=== PATIENT | female | born 1970 | race Caucasian/White ===

== ENCOUNTER → 2016-07-14 | Outpatient (CLI) | payer OTHER ==
--- NOTE | 2016-07-14 16:17 | REP ---
Left lower extremity Duplex Doppler venous ultrasound: Real time compression and duplex Doppler interrogation of the left lower extremity deep venous system is performed. The left common femoral, superficial femoral and popliteal veins are fully compressible with transducer pressure and demonstrate normal spontaneous and phasic flow, without evidence of deep venous thrombosis. Impression: No evidence of deep venous thrombosis of the left lower extremity femoral popliteal venous system. Signed by Estevan Britt MD 07/14/2016 04:09 P
== END ==
LOC: M RAD 15:37
PROVIDERS: ATTEND Physician Assistant Surgical
DX: M79.605 Pain in left leg (principal)

== ENCOUNTER → 2016-08-11 | Outpatient (REF) | payer OTHER | LOC: M LAB REF 17:01 | PROVIDERS: ATTEND Specialist | DX: Z12.4 Encounter for screening for malignant neoplasm of cervix (principal) ==

== ENCOUNTER → 2016-09-21 | Outpatient (REF) | payer OTHER ==
[~2016-09-21] MED LIST: ULTR50TA8 PO
[2016-09-21 14:43] LABS: ALBUMIN 3.3 GM/DL (3.2-5.2); ALBUMIN/GLOBULIN RATIO 0.79 (1.00-1.93); ALKALINE PHOSPHATASE 74 U/L (45-117); ALT/SGPT 26 U/L (12-78); ANION GAP 7 MEQ/L (8-16); AST/SGOT 11 U/L (15-37); BILIRUBIN,TOTAL 0.3 MG/DL (0.2-1.0); BLOOD UREA NITROGEN 14 MG/DL (7-18); CALCIUM LEVEL 8.7 MG/DL (8.5-10.1); CARBON DIOXIDE LEVEL 27 MEQ/L (21-32); CHLORIDE LEVEL 105 MEQ/L (98-107); CHOLESTEROL LEVEL 238 MG/DL (<200); FREE T4 0.95 NG/DL (0.76-1.46); GLOMERULAR FILTRATION RATE > 60.0 (>58); GLUCOSE, FASTING 93 MG/DL (70-105); POTASSIUM SERUM 4.2 MEQ/L (3.5-5.1); SODIUM LEVEL 139 MEQ/L (136-145); TOTAL PROTEIN 7.5 GM/DL (6.4-8.2); TRIGLYCERIDES LEVEL 174 MG/DL (<150)
== END ==
LOC: M SFHCADAM 07:39
PROVIDERS: ATTEND Family Medicine
DX: I10 Essential (primary) hypertension (principal); E78.5 Hyperlipidemia, unspecified

== ENCOUNTER → 2016-11-21 | Outpatient (REF) | payer OTHER ==
[2016-11-21 16:51] LABS: MEAN CORPUSCULAR HEMOGLOBIN 23.6 pg (27.0-33.0); MEAN CORPUSCULAR HGB CONC 30.7 g/dl (32.0-36.5); MEAN CORPUSCULAR VOLUME 76.8 fl (80.0-96.0); RED CELL DISTRIBUTION WIDTH 16.3 % (11.5-14.5); WHITE BLOOD COUNT 7.8 K/mm3 (4.0-10.0)
[2016-11-21 17:01] LABS: ANION GAP 9 MEQ/L (8-16); BLOOD UREA NITROGEN 13 MG/DL (7-18); CALCIUM LEVEL 9.3 MG/DL (8.5-10.1); CARBON DIOXIDE LEVEL 31 MEQ/L (21-32); CHLORIDE LEVEL 99 MEQ/L (98-107); CREATININE FOR GFR 0.66 MG/DL (0.55-1.02); FREE T4 1.07 NG/DL (0.76-1.46); GLOMERULAR FILTRATION RATE > 60.0 (>58); GLUCOSE, FASTING 107 MG/DL (70-105); POTASSIUM SERUM 3.8 MEQ/L (3.5-5.1); SODIUM LEVEL 139 MEQ/L (136-145)
== END ==
LOC: M SFHCADAM 08:16
PROVIDERS: ATTEND Physician Assistant
DX: E03.9 Hypothyroidism, unspecified (principal); I11.9 Hypertensive heart disease without heart failure; I10 Essential (primary) hypertension

== ENCOUNTER → 2016-12-29 | Outpatient (REF) | payer OTHER ==
[2016-12-29 20:15] LABS: ANION GAP 6 MEQ/L (8-16); BLOOD UREA NITROGEN 17 MG/DL (7-18); CALCIUM LEVEL 8.6 MG/DL (8.5-10.1); CARBON DIOXIDE LEVEL 30 MEQ/L (21-32); CHLORIDE LEVEL 103 MEQ/L (98-107); CREATININE FOR GFR 0.84 MG/DL (0.55-1.02); GLOMERULAR FILTRATION RATE > 60.0 (>58); GLUCOSE, FASTING 121 MG/DL (70-105); POTASSIUM SERUM 3.6 MEQ/L (3.5-5.1); SODIUM LEVEL 139 MEQ/L (136-145)
== END ==
LOC: M SFHCADAM 15:50
PROVIDERS: ATTEND Physician Assistant
DX: I10 Essential (primary) hypertension (principal)

== ENCOUNTER 2017-01-10 10:46 | Emergency (ER) | payer OTHER ==
[~2017-01-10] VITALS: Ht 157.5 cm; Wt 118.2 kg
[2017-01-10 10:47] VITALS: BP 135/63
[2017-01-10] MEDS ORDERED: traMADol 50 MG TAB PO ONE (11:45)
[2017-01-10] MEDS ORDERED: ULTR50TA8 PO (12:34)
--- NOTE | 2017-01-13 14:35 | REP ---
RIGHT KNEE SERIES: Five views. HISTORY: Trauma. FINDINGS: Five views of the right knee demonstrate mild medial compartment narrowing and spur formation. There is no evidence of fracture or subluxation. Minimal lateral patellar spurring is seen. IMPRESSION: Mild osteoarthritic spurring. No fracture seen. Signed by Yonatan Brannon MD 01/18/2017 08:16 A
== END 2017-01-10 12:47 | disposition home or self-care (01) ==
LOC: M ED 10:46
DX: M25.561 Pain in right knee (principal); I10 Essential (primary) hypertension; J45.909 Unspecified asthma, uncomplicated; M17.0 Bilateral primary osteoarthritis of knee; Z88.5 Allergy status to narcotic agent; Z88.8 Allergy status to other drugs, medicaments and biological substances

== ENCOUNTER → 2017-03-23 | Outpatient (REF) | payer OTHER ==
[2017-03-23 20:03] LABS: ALBUMIN 3.5 GM/DL (3.2-5.2); ALBUMIN/GLOBULIN RATIO 0.81 (1.00-1.93); ALKALINE PHOSPHATASE 66 U/L (45-117); ALT/SGPT 32 U/L (12-78); AMYLASE 30 U/L (25-115); ANION GAP 8 MEQ/L (8-16); AST/SGOT 21 U/L (7-37); BILIRUBIN,TOTAL 0.2 MG/DL (0.2-1.0); BLOOD UREA NITROGEN 16 MG/DL (7-18); CARBON DIOXIDE LEVEL 28 MEQ/L (21-32); CHLORIDE LEVEL 101 MEQ/L (98-107); CREATININE FOR GFR 0.69 MG/DL (0.55-1.02); GLOMERULAR FILTRATION RATE > 60.0 (>58); GLUCOSE, FASTING 94 MG/DL (70-105); LIPASE 197 U/L (73-393); POTASSIUM SERUM 3.5 MEQ/L (3.5-5.1); SODIUM LEVEL 137 MEQ/L (136-145); TOTAL PROTEIN 7.8 GM/DL (6.4-8.2)
== END ==
LOC: M SFHCADAM 14:15
DX: R11.2 Nausea with vomiting, unspecified (principal); R05 Cough

== ENCOUNTER → 2017-04-23 | Outpatient (CLI) | payer OTHER | LOC: M WHC 07:48 | DX: K21.9 Gastro-esophageal reflux disease without esophagitis (principal); K76.0 Fatty (change of) liver, not elsewhere classified | CPT/HCPCS: 76705 ==

== ENCOUNTER → 2017-06-10 | Outpatient (CLI) | payer OTHER ==
[~2017-06-10] MED LIST changes: +ISOVUE-370 76% 100ML VIAL (Q9967) As Ordered; -ULTR50TA8 PO
== END ==
LOC: M RAD 16:59
DX: R59.0 Localized enlarged lymph nodes (principal)
CPT/HCPCS: Q9967

== ENCOUNTER → 2017-06-29 | Outpatient (REF) | payer OTHER ==
[2017-06-29 20:34] LABS: ANION GAP 8 MEQ/L (8-16); BLOOD UREA NITROGEN 15 MG/DL (7-18); CALCIUM LEVEL 8.9 MG/DL (8.5-10.1); CARBON DIOXIDE LEVEL 30 MEQ/L (21-32); CHLORIDE LEVEL 101 MEQ/L (98-107); CREATININE FOR GFR 0.61 MG/DL (0.55-1.30); GLOMERULAR FILTRATION RATE > 60.0 (>58); GLUCOSE, FASTING 78 MG/DL (70-100); POTASSIUM SERUM 3.2 MEQ/L (3.5-5.1); SODIUM LEVEL 139 MEQ/L (136-145)
== END ==
LOC: M SFHCADAM 14:21
DX: Z01.818 Encounter for other preprocedural examination (principal)

== ENCOUNTER 2017-07-09 07:34 | Day surgery (SDC) | payer OTHER ==
[2017-07-09 08:07] LABS: CONTROL LINE UCG INT CTR LINE PRESENT; URINE PREG TEST NEGATIVE (NEGATIVE)
[2017-07-09] MEDS: LR 1,000 ML IV ×2 (08:07→10:30)
[2017-07-09] MEDS ORDERED: MIDAZOLAM INJ 2 MG/2 ML VIAL (J2250) As Ordered (08:40)
[2017-07-09] MEDS ORDERED: fentaNYL 100 MCG/2 ML INJECTION (J3010) As Ordered ×2 (08:40→10:04)
[2017-07-09] MEDS ORDERED: SCOPOLAMINE 1MG TRANSDERMAL PATCH As Ordered (09:36)
[2017-07-09] MEDS ORDERED: PROPOFOL 200 MG/20 ML VIAL As Ordered (09:57)
[2017-07-09] MEDS ORDERED: ONDANSETRON 4MG/2ML VIAL (J2405) As Ordered ×2 (09:57→10:57)
[2017-07-09] MEDS ORDERED: dexameTHASONE 4 MG/ML 1ML VIAL (J1100) As Ordered (09:57)
[2017-07-09] MEDS ORDERED: LIDOCAINE 2% INJ 100 MG/5 ML SDV (FOR ANES.) As Ordered (09:57)
[2017-07-09] MEDS ORDERED: KETOROLAC 60 MG/2 ML VIAL (J1885) As Ordered (09:57)
[2017-07-09] MEDS: ROPIvacaine 0.5% 30 ML INJECTION (J2795 PER 1MG) As Ordered (10:26)
[2017-07-09] MEDS: TRIAMCINOLONE ACETONIDE SUSP 40 MG/ML VIAL (J3301) As Ordered (10:27)
[2017-07-09] MEDS ORDERED: PERCOCET 5MG/325MG TAB As Ordered (10:56)
[2017-07-09] MEDS: PERCOCET 5MG/325MG TAB PO (11:00)
[2017-07-09] MEDS: ONDANSETRON 4MG/2ML VIAL (J2405) IV (11:00)
[2017-07-09] MEDS ORDERED: ACETAMINOPH W/CODEINE #3 TAB UD PO (11:15)
[2017-07-09] MEDS ORDERED: HYDROmorphone HCL 1 MG/ML SYRINGE (J1170) IV (11:15)
[2017-07-09] MEDS ORDERED: LR 1,000 ML IV (11:15)
[2017-07-09] MEDS ORDERED: fentaNYL 100 MCG/2 ML INJECTION (J3010) IV (11:15)
== END 2017-07-09 13:40 | disposition home or self-care (01) ==
LOC: M SDC 07:34
DX: M17.11 Unilateral primary osteoarthritis, right knee (principal); S83.211D Bucket-handle tear of medial meniscus, current injury, right knee, subsequent encounter; M23.261 Derangement of other lateral meniscus due to old tear or injury, right knee; I10 Essential (primary) hypertension; E03.9 Hypothyroidism, unspecified; R06.02 Shortness of breath; K21.9 Gastro-esophageal reflux disease without esophagitis; G43.909 Migraine, unspecified, not intractable, without status migrainosus; J45.909 Unspecified asthma, uncomplicated; R06.83 Snoring; E66.01 Morbid (severe) obesity due to excess calories; Z68.42 Body mass index [BMI] 45.0-49.9, adult; Z88.5 Allergy status to narcotic agent; Z88.6 Allergy status to analgesic agent; Z79.899 Other long term (current) drug therapy; X58.XXXA Exposure to other specified factors, initial encounter; Y93.89 Activity, other specified; Y92.89 Other specified places as the place of occurrence of the external cause; Y99.8 Other external cause status
CPT/HCPCS: 29880

== ENCOUNTER → 2017-07-20 | Outpatient (CLI) | payer OTHER ==
[~2017-07-20] MED LIST changes: -ISOVUE-370 76% 100ML VIAL (Q9967) As Ordered; +LIDOCAINE 1% MDV 20ML VIAL As Ordered
== END ==
LOC: M RADPRO 12:37
DX: R59.9 Enlarged lymph nodes, unspecified (principal)
CPT/HCPCS: 76536

== ENCOUNTER 2017-11-05 16:14 | Day surgery (SDC) | payer OTHER ==
[2017-11-05] MEDS ORDERED: MIDAZOLAM INJ 2 MG/2 ML VIAL (J2250) As Ordered (17:08)
[2017-11-05] MEDS ORDERED: fentaNYL 100 MCG/2 ML INJECTION (J3010) As Ordered ×2 (17:08→20:36)
[2017-11-05] MEDS ORDERED: NEOSTIGMINE 10 MG/10 ML VIAL (J2710) As Ordered (17:08)
[2017-11-05] MEDS ORDERED: dexameTHASONE 4 MG/ML 1ML VIAL (J1100) As Ordered (17:08)
[2017-11-05] MEDS ORDERED: GLYCOPYRROLATE INJ 0.2 MG/ML 2 ML VIAL As Ordered (17:08)
[2017-11-05] MEDS ORDERED: LIDOCAINE 2% INJ 100 MG/5 ML SDV (FOR ANES.) As Ordered (17:08)
[2017-11-05] MEDS ORDERED: ONDANSETRON 4MG/2ML VIAL (J2405) As Ordered (17:08)
[2017-11-05] MEDS ORDERED: KETOROLAC 60 MG/2 ML VIAL (J1885) As Ordered (17:08)
[2017-11-05] MEDS ORDERED: ROCURONIUM BROMIDE 50 MG/5 ML VIAL As Ordered (17:08)
[2017-11-05] MEDS ORDERED: PROPOFOL 200 MG/20 ML VIAL As Ordered (17:08)
[2017-11-05 17:31] LABS: CONTROL LINE UCG INT CTR LINE PRESENT; URINE PREG TEST NEGATIVE (NEGATIVE)
[2017-11-05] MEDS: BUPIVACAINE HCL 0.25% 30 ML VIAL As Ordered (21:09)
[2017-11-05] MEDS ORDERED: ALBUTEROL SULFATE 2.5 MG/0.5 ML INH NEB SOLN As Ordered (21:20)
[2017-11-05] MEDS: ALBUTEROL SULFATE 2.5 MG/0.5 ML INH NEB SOLN INH (21:21)
[2017-11-05] MEDS ORDERED: fentaNYL 100 MCG/2 ML INJECTION (J3010) IV (21:30)
[2017-11-05] MEDS ORDERED: ONDANSETRON 4MG/2ML VIAL (J2405) IV (21:30)
[2017-11-05] MEDS ORDERED: LR 1,000 ML IV (21:30)
[2017-11-05] MEDS ORDERED: METOCLOPRAMIDE INJ 10MG/2ML VIAL (J2765) IV (21:30)
[2017-11-05] MEDS ORDERED: NORCO, ANEXSIA 5/325MG TABLET (HYDROcodone/ACETAMINOPHEN) PO (21:45)
[2017-11-05] MEDS ORDERED: ACETAMINOPHEN TAB 650MG DOSE (2X325MG) PO (21:45)
[2017-11-05] MEDS: PERCOCET 5MG/325MG TAB PO (21:56)
== END 2017-11-05 23:25 | disposition home or self-care (01) ==
LOC: M SDC 23:25
DX: K42.0 Umbilical hernia with obstruction, without gangrene (principal); I10 Essential (primary) hypertension; J45.909 Unspecified asthma, uncomplicated; E03.9 Hypothyroidism, unspecified; Z79.899 Other long term (current) drug therapy; Z88.5 Allergy status to narcotic agent
CPT/HCPCS: 49587

== ENCOUNTER → 2018-02-07 | Outpatient (REF) | payer OTHER ==
[2018-02-07 15:21] LABS: BASO # 0.1 10^3/uL (0.0-0.2); BASO % 0.6 % (0.0-1.0); EOS # 0.3 10^3/uL (0.0-0.50); EOS % 3.8 % (0.0-3.0); HEMATOCRIT 36.3 % (36.0-47.0); HEMOGLOBIN 11.4 g/dl (12.0-15.5); IMMATURE GRANULOCYTE % 0.5 % (0-3.0); LYMPH # 1.7 10^3/uL (1.5-4.5); LYMPH % 19.7 % (24.0-44.0); MEAN CORPUSCULAR HEMOGLOBIN 24.5 pg (27.0-33.0); MEAN CORPUSCULAR HGB CONC 31.4 g/dl (32.0-36.5); MEAN CORPUSCULAR VOLUME 78.1 fl (80.0-96.0); MONO # 0.9 10^3/uL (0.0-0.8); MONO % 9.9 % (0.0-5.0); NEUTROPHILS # 5.6 10^3/uL (1.8-7.7); NEUTROPHILS % 65.5 % (36.0-66.0); PLATELET COUNT, AUTOMATED 349 10^3/uL (150-450); RED BLOOD COUNT 4.65 10^6/uL (4.00-5.40); RED CELL DISTRIBUTION WIDTH 16.6 % (11.5-14.5); WHITE BLOOD COUNT 8.6 10^3/uL (4.0-10.0)
[2018-02-07 15:22] LABS: C REACTIVE PROTEIN QUANTITATIV 1.72 MG/DL (0.00-0.30)
[2018-02-07 15:22] LABS: URIC ACID 6.6 MG/DL (2.6-6.0)
[2018-02-07 16:20] LABS: ERYTHROCYTE SEDIMENTATION RATE 44 mm/hr (0-20)
== END ==
LOC: M LABDRAW1 13:25
DX: S83.241D Other tear of medial meniscus, current injury, right knee, subsequent encounter (principal); X58.XXXD Exposure to other specified factors, subsequent encounter
CPT/HCPCS: 84550

== ENCOUNTER 2018-07-25 17:39 | Emergency (ER) | payer OTHER ==
[~2018-07-25] VITALS: Ht 154.9 cm; Wt 115.5 kg
[~2018-07-25 17:39] MED LIST changes: +CALC500T49 PO; +CHLO25TA PO; +GLUC1CAP10 PO; +LEVO25TA5 PO; -LIDOCAINE 1% MDV 20ML VIAL As Ordered; +LOSA25TA14 PO; +MELO15TA28 PO; +OMEP20CA3 PO; +RANI150T PO; +TRAM50TA2 PO; +ULTR50TA8 PO; +VENTAER; +VITA100067 PO
[2018-07-25] MEDS ORDERED: POTA10CA32 (20:12)
[2018-07-25] MEDS ORDERED: predniSONE 20 MG TAB PO ONE (20:45)
[2018-07-25] MEDS ORDERED: BACLOFEN 10 MG TAB PO ONE (20:45)
[2018-07-25] MEDS ORDERED: BACL1TAB9 PO (21:09)
[2018-07-25] MEDS ORDERED: PRED20TA PO (21:09)
[2018-07-25 21:15] VITALS: BP 137/90
== END 2018-07-25 21:16 | disposition home or self-care (01) ==
LOC: M ED 17:39
DX: M54.5 Low back pain (principal); G89.29 Other chronic pain; I10 Essential (primary) hypertension; G43.909 Migraine, unspecified, not intractable, without status migrainosus; K21.9 Gastro-esophageal reflux disease without esophagitis; E03.9 Hypothyroidism, unspecified; J45.909 Unspecified asthma, uncomplicated; Z88.6 Allergy status to analgesic agent; Z88.5 Allergy status to narcotic agent; Z79.899 Other long term (current) drug therapy

== ENCOUNTER → 2018-08-24 | Outpatient (REF) | payer OTHER ==
[~2018-08-24] MED LIST changes: +BACL1TAB9 PO; +POTA10CA32; +PRED20TA PO
[2018-08-27 00:06] LABS: HPV HYBRID CAPTURE II Negative (Negative)
== END ==
LOC: M LAB REF 13:20
PROVIDERS: ATTEND Specialist
DX: Z12.4 Encounter for screening for malignant neoplasm of cervix (principal)

== ENCOUNTER → 2018-12-02 | Outpatient (REF) | payer OTHER ==
[~2018-12-02] MED LIST changes: -OMEP20CA3 PO; +OMEP20CA4 PO
[2018-12-02 20:06] LABS: C REACTIVE PROTEIN QUANTITATIV 1.43 MG/DL (0.00-0.30); RHEUMATOID FACTOR QUANT < 10.0 IU/ML (<15.0)
== END ==
LOC: M SFHCRHEU 14:54
PROVIDERS: ATTEND Internal Medicine Rheumatology
DX: R79.82 Elevated C-reactive protein (CRP) (principal)

== ENCOUNTER → 2018-12-02 | Outpatient (CLI) | payer OTHER ==
--- NOTE | 2018-12-02 15:45 | REP ---
REASON: Bilateral knee pain. Standing bilateral AP view of the knees shows advanced right knee medial compartmental narrowing with subchondral sclerosis. There is bicompartmental marginal osteophytosis medial compartment greater than the lateral right knee. Only mild medial compartmental narrowing is seen on the left with minimal marginal osteophytosis. IMPRESSION: Chronic changes as described above. Electronically Signed by Rafael Alvarez DO 12/02/2018 03:58 P
--- NOTE | 2018-12-02 15:47 | REP ---
REASON: Knee pain. There is medial compartmental narrowing with subchondral sclerosis. There is tricompartmental marginal osteophytosis heaviest involving the medial compartment. There is asymmetric narrowing of the patellofemoral joint space as well. IMPRESSION: Chronic changes as described above. Electronically Signed by Rafael Alvarez DO 12/02/2018 03:58 P
== END ==
LOC: M ADAMS 15:06
PROVIDERS: ATTEND Internal Medicine Rheumatology
DX: M25.762 Osteophyte, left knee (principal); M25.761 Osteophyte, right knee

== ENCOUNTER → 2019-01-18 | Outpatient (REF) | payer OTHER | LOC: M SFHCPLAZ 17:24 | PROVIDERS: ATTEND Dermatology | DX: L57.0 Actinic keratosis (principal) ==

== ENCOUNTER → 2020-04-09 | Outpatient (REF) | payer OTHER ==
[~2020-04-09] MED LIST changes: +OMEP1CAP73 PO; -OMEP20CA4 PO
[2020-04-10 13:12] LABS: HEMATOCRIT 45.2 % (36.0-47.0); HEMOGLOBIN 14.8 g/dl (12.0-15.5); MEAN CORPUSCULAR HEMOGLOBIN 28.2 pg (27.0-33.0); MEAN CORPUSCULAR HGB CONC 32.7 g/dl (32.0-36.5); MEAN CORPUSCULAR VOLUME 86.1 fl (80.0-96.0); PLATELET COUNT, AUTOMATED 194 10^3/uL (150-450); RED BLOOD COUNT 5.25 10^6/uL (4.00-5.40); WHITE BLOOD COUNT 6.8 10^3/uL (4.0-10.0)
[2020-04-10 13:45] LABS: MALB URINE SIEMENS 18.5 MG/L; MAU/CREAT RATIO 18.3 MCG/MG (0.0-30.0)
[2020-04-10 13:51] LABS: ALBUMIN 3.7 GM/DL (3.2-5.2); ALT/SGPT 141 U/L (12-78); BILIRUBIN,TOTAL 0.5 MG/DL (0.2-1.0); BLOOD UREA NITROGEN 14 MG/DL (7-18); CALCIUM LEVEL 11.4 MG/DL (8.5-10.1); CARBON DIOXIDE LEVEL 33 MEQ/L (21-32); CHLORIDE LEVEL 92 MEQ/L (98-107); CHOLESTEROL LEVEL 240 MG/DL (<200); CREATININE FOR GFR 0.86 MG/DL (0.55-1.30); FREE T4 1.27 NG/DL (0.76-1.46); GLOMERULAR FILTRATION RATE > 60.0 (>58); GLUCOSE, FASTING 358 MG/DL (70-100); HDL CHOLESTEROL 32 MG/DL (>40); LDL CHOLESTEROL 137 MG/DL (<100); NON-HDL-C 208 MG/DL; POTASSIUM SERUM 3.9 MEQ/L (3.5-5.1); SODIUM LEVEL 132 MEQ/L (136-145); TOTAL PROTEIN 8.2 GM/DL (6.4-8.2); TRIGLYCERIDES LEVEL 357 MG/DL (<150)
== END ==
LOC: M SFHCADAM 15:52
PROVIDERS: ATTEND Physician Assistant
DX: K21.9 Gastro-esophageal reflux disease without esophagitis (principal); I11.9 Hypertensive heart disease without heart failure; E03.9 Hypothyroidism, unspecified; K92.1 Melena

== ENCOUNTER → 2020-04-17 | Outpatient (REF) | payer OTHER ==
[2020-04-17 19:45] LABS: HEMOGLOBIN A1c 11.9 %
== END ==
LOC: M SFHCADAM 14:36
PROVIDERS: ATTEND Physician Assistant
DX: R73.9 Hyperglycemia, unspecified (principal)

== ENCOUNTER → 2020-04-24 | Outpatient (REF) | payer OTHER | LOC: M SFHCADAM 16:18 | PROVIDERS: ATTEND Physician Assistant | DX: R74.8 Abnormal levels of other serum enzymes (principal) ==

== ENCOUNTER → 2020-05-01 | Outpatient (REF) | payer OTHER ==
[2020-05-02 14:02] LABS: FERRITIN 117 NG/ML (8-252)
[2020-05-02 14:23] LABS: HEPATITIS B SURFACE ANTIGEN NEGATIVE (NEGATIVE)
[2020-05-02 14:50] LABS: HEPATITIS C VIRUS ABY INDEX 0.1 INDEX (<0.8)
[2020-05-02 14:51] LABS: HEPATITIS B CORE ANTIBODY IGM NEGATIVE (NEGATIVE)
[2020-05-02 14:53] LABS: HEPATITIS A ANTIBODY IGM NEGATIVE (NEGATIVE)
[2020-05-03 21:12] LABS: ANA (HEP2) Negative (.); ANTI-MITOCHONDRIAL ANTIBODY <20.0 Units (0.0-20.0)
== END ==
LOC: M SFHCADAM 15:12
PROVIDERS: ATTEND Physician Assistant
DX: E11.9 Type 2 diabetes mellitus without complications (principal); R74.8 Abnormal levels of other serum enzymes

== ENCOUNTER → 2020-05-10 | Outpatient (CLI) | payer OTHER ==
[~2020-05-10] MED LIST changes: +LANTINJ4 SC; +METF500T13; +OMEP-221
--- NOTE | 2020-05-10 08:24 | REP ---
INDICATION: R74.8 ELEVAED LIVER ENZYMES. COMPARISON: Comparison sonography is from April 23, 2017.. TECHNIQUE: Right upper quadrant sonogram. FINDINGS: Scanning through the right upper quadrant of the abdomen demonstrates a mildly dilated thin walled gallbladder without evidence of stone or polyp. The gallbladder measures up to 10.0 cm. Common bile duct is normal measuring 0.35 cm. There is increased echogenicity diffusely in the liver consistent with fatty infiltration. The liver appears mildly enlarged with a craniocaudal ultrasound span of 20.9 cm. No focal liver lesion is seen. No pancreatic abnormality is observed. There is no evidence of ascites or right renal abnormality. The right kidney measures 12.2 x 6.8 x 5.4 cm.. IMPRESSION: Evidence of fatty infiltration and enlargement of the liver. Otherwise negative right upper quadrant sonography.. <Electronically signed by Milton Brannon > 05/10/20 [id number]
== END ==
LOC: M WHC 06:26
PROVIDERS: ATTEND Physician Assistant
DX: R74.8 Abnormal levels of other serum enzymes (principal)

== ENCOUNTER → 2020-05-18 | Outpatient (CLI) | payer OTHER | LOC: M LABSMTC 10:47 | PROVIDERS: ATTEND Anesthesiology | DX: Z01.812 Encounter for preprocedural laboratory examination (principal); Z20.822 Contact with and (suspected) exposure to COVID-19 ==

== ENCOUNTER 2020-05-23 06:42 | Day surgery (SDC) | payer OTHER ==
[~2020-05-23] VITALS: Ht 157.5 cm; Wt 108.0 kg
[~2020-05-23 06:42] MED LIST changes: -METF500T13; +METF500T13 PO; -OMEP-221; +OMEP-221 PO; -VENTAER; +VENTAER INH
[2020-05-23] MEDS ORDERED: NS 1,000 ML IV ONE (07:00)
[2020-05-23] MEDS ORDERED: propofoL 200 MG/20 ML VIAL As Ordered ONE ×2 (07:13→08:08)
[2020-05-23] MEDS ORDERED: LIDOCAINE 2% 100MG/5ML SDV (FOR ANES.) As Ordered ONE (07:13)
--- NOTE | 2020-05-23 08:20 | ROOR ---
Patient Name: Jazzy Malagon Procedure Date: 05/23/2020 7:27 AM Date of : 1970 Age: 49 Room: [facility] Gender: Female Note Status: Finalized Procedure: Colonoscopy Indications: Rectal bleeding Providers: Garo Bean MD Referring MD: GILDA Pruitt Requesting Provider: Medicines: Monitored Anesthesia Care Complications: No immediate complications. Procedure: Pre-Anesthesia Assessment: - Prior to the procedure, a History and Physical was performed, and patient medications and allergies were reviewed. The patient is competent. The risks and benefits of the procedure and the sedation options and risks were discussed with the patient. All questions were answered and informed consent was obtained. Patient identification and proposed procedure were verified by the physician, the nurse and the anesthesiologist in the procedure room. Mental Status Examination: alert and oriented. Airway Examination: normal oropharyngeal airway and neck mobility. Prophylactic Antibiotics: The patient does not require prophylactic antibiotics. Prior Anticoagulants: The patient has taken no previous anticoagulant or antiplatelet agents. ASA Grade Assessment: III - A patient with severe systemic disease. After reviewing the risks and benefits, the patient was deemed in satisfactory condition to undergo the procedure. The anesthesia plan was to use monitored anesthesia care (MAC). Immediately prior to administration of medications, the patient was re-assessed for adequacy to receive sedatives. The heart rate, respiratory rate, oxygen saturations, blood pressure, adequacy of pulmonary ventilation, and response to care were monitored throughout the procedure. The physical status of the patient was re-assessed after the procedure. The Colonoscope was introduced through the anus and advanced to the cecum, identified by appendiceal orifice and ileocecal valve. The colonoscopy was performed without difficulty. The patient tolerated the procedure well. The quality of the bowel preparation was excellent. Findings: Hemorrhoids were found on perianal exam. One 10 mm submucosal nodule was found at the appendiceal orifice. The nodule was removed with a hot snare. Resection and retrieval were complete. There was drainage of some whitish thick fluid after the nodule was cut off. Two sessile polyps were found in the ascending colon. The polyps were 3 to 4 mm in size. These polyps were removed with a cold snare. Resection and retrieval were complete. Estimated blood loss was minimal. External and internal hemorrhoids were found during endoscopy. The hemorrhoids were Grade I (internal hemorrhoids that do not prolapse). Impression: - Hemorrhoids found on perianal exam. - Submucosal nodule at the appendiceal orifice. - Two 3 to 4 mm polyps in the ascending colon, removed with a cold snare. Resected and retrieved. - External and internal hemorrhoids. Recommendation: - Discharge patient to home. - Resume previous diet. - Continue present medications. - Await pathology results. - Return to endoscopist in 2 weeks. Procedure Code(s): --- Professional --- 88569, Colonoscopy, flexible; with removal of tumor(s), polyp(s), or other lesion(s) by snare technique Diagnosis Code(s): --- Professional --- K64.0, First degree hemorrhoids K63.89, Other specified diseases of intestine K63.5, Polyp of colon K62.5, Hemorrhage of anus and rectum CPT copyright 2019 [employer]. All rights reserved. The codes documented in this report are preliminary and upon him coder review may be revised to meet current compliance requirements. Garo Bean MD Garo Bean MD 05/23/2020 8:19:39 AM Electronically signed by Garo Bean MD Number of Addenda: 0 Note Initiated On: 05/23/2020 7:27 AM Estimated Blood Loss: Estimated blood loss was minimal.
[2020-05-23 08:39] VITALS: BP 115/58
[2020-05-24] MEDS ORDERED: LOSA25TA14 PO (15:53)
== END 2020-05-23 08:41 | disposition home or self-care (01) ==
LOC: M OPP 06:42
PROVIDERS: ATTEND Surgery
DX: K63.89 Other specified diseases of intestine (principal); D12.2 Benign neoplasm of ascending colon; K64.8 Other hemorrhoids; K62.5 Hemorrhage of anus and rectum; E11.9 Type 2 diabetes mellitus without complications; Z79.4 Long term (current) use of insulin; Z79.899 Other long term (current) drug therapy; Z79.891 Long term (current) use of opiate analgesic; Z88.5 Allergy status to narcotic agent; Z88.6 Allergy status to analgesic agent

== ENCOUNTER 2020-05-24 14:50 | Inpatient (IN) | payer OTHER ==
[~2020-05-24] VITALS: Ht 157.5 cm; Wt 111.9 kg
[2020-05-24] MEDS ORDERED: NS 1,000 ML IV ONE (15:05)
[2020-05-24] MEDS ORDERED: ONDANSETRON 4MG/2ML VIAL IV ONE (15:05)
[2020-05-24] MEDS ORDERED: MORPHINE 2 MG/ML 1ML VIAL (J2270) IV PRN ×2 (15:05→15:50)
[2020-05-24] MEDS ORDERED: PIPERACILLIN/TAZOBACTAM SOD 4.5 GM in D5W MINI-BAG PLUS 50 ML IV ONE (15:15)
[2020-05-24] MEDS ORDERED: ISOVUE-370 76% 100ML VIAL As Ordered ONE (15:23)
[2020-05-24 15:39] LABS: BASO # 0.1 10^3/uL (0.0-0.2); BASO % 0.6 % (0.0-1.0); EOS # 0.3 10^3/uL (0.0-0.5); EOS % 3.1 % (0.0-3.0); HEMATOCRIT 43.7 % (36.0-47.0); HEMOGLOBIN 14.5 g/dl (12.0-15.5); LYMPH % 21.9 % (24.0-44.0); MEAN CORPUSCULAR HEMOGLOBIN 28.4 pg (27.0-33.0); MEAN CORPUSCULAR HGB CONC 33.2 g/dl (32.0-36.5); MEAN CORPUSCULAR VOLUME 85.5 fl (80.0-96.0); MONO # 0.8 10^3/uL (0.0-0.8); MONO % 8.1 % (2.0-8.0); NEUTROPHILS # 6.1 10^3/uL (1.5-8.5); PLATELET COUNT, AUTOMATED 257 10^3/uL (150-450); RED BLOOD COUNT 5.11 10^6/uL (4.00-5.40); WHITE BLOOD COUNT 9.3 10^3/uL (4.0-10.0)
[2020-05-24 15:49] LABS: INR 0.98; PARTIAL THROMBOPLASTIN TIME 28.2 SECONDS (24.2-38.5); PROTHROMBIN TIME 13.2 SECONDS (12.5-14.3)
--- NOTE | 2020-05-24 15:49 | REP ---
INDICATION: rlq pain, ro perf, s/p colonoscopy. COMPARISON: None TECHNIQUE: Axial contrast-enhanced images from the lung bases to the pubic symphysis using 100 cc Isovue 370 intravenous contrast material. . This CT examination was performed using the following dose reduction techniques: Automated exposure control, adjustment of mA and/or kv according to the patient's size, and the use of iterative reconstruction technique. FINDINGS: Liver, spleen, pancreas, gallbladder, bilateral adrenal glands and kidneys are normal. The enteric system including stomach, small, and large bowel appears normal. No evidence for obstruction or perforation. Normal terminal ileum identified in the right lower quadrant. The appendix is not visualized, but what appears to be the base of the appendix demonstrates mild adjacent subtle stranding raising the possibility of early appendicitis. Correlation with physical examination, history and close clinical observation is recommended. Pelvis demonstrates normal bladder and age-appropriate prostate/seminal vesicles. No ascites. No free air. No intraperitoneal or retroperitoneal adenopathy. Abdominal aorta and vasculature appear normal. Musculoskeletal structures are intact and without acute osseous abnormality. IMPRESSION: 1. No evidence for bowel obstruction or perforation and no definite acute process. 2. The appendix is not visualized, but what appears to be the base of the appendix demonstrates mild adjacent subtle stranding raising the possibility of early appendicitis. Correlation with physical examination, history and close clinical observation is recommended. <Electronically signed by Patrice Castro > 05/24/20 0695
[2020-05-24] MEDS ORDERED: ONDANSETRON 4MG/2ML VIAL IV PRN (15:50)
--- NOTE | 2020-05-24 15:50 | REP ---
INDICATION: abdl pain COMPARISON: None. TECHNIQUE: Portable AP view of the chest FINDINGS: The mediastinum and cardiac silhouette are within normal limits for portable technique. The lung riggins are clear without acute consolidation, effusion, or pneumothorax. Skeletal structures are intact. IMPRESSION: No acute cardiopulmonary process appreciated. <Electronically signed by Patrice Castro > 05/24/20 [id number]
[2020-05-24] MEDS ORDERED: LOSA25TA14 PO (15:53)
[2020-05-24 16:01] LABS: ALBUMIN 3.8 GM/DL (3.2-5.2); BILIRUBIN,DIRECT 0.2 MG/DL (0.0-0.2); BILIRUBIN,TOTAL 0.6 MG/DL (0.2-1.0); TOTAL PROTEIN 8.4 GM/DL (6.4-8.2)
[2020-05-24 16:15] LABS: RSV AMPLIFICATION NEGATIVE (NEGATIVE)
[2020-05-24] MEDS ORDERED: ROCURONIUM BROMIDE 50 MG/5 ML VIAL As Ordered ONE (16:28)
[2020-05-24] MEDS ORDERED: propofoL 200 MG/20 ML VIAL As Ordered ONE (16:28)
[2020-05-24] MEDS ORDERED: LIDOCAINE 2% 100MG/5ML SDV (FOR ANES.) As Ordered ONE (16:28)
[2020-05-24] MEDS ORDERED: MIDAZOLAM INJ 2MG/2ML VIAL (J2250 PER 1MG) As Ordered ONE (16:28)
[2020-05-24] MEDS ORDERED: ONDANSETRON 4MG/2ML VIAL As Ordered ONE (16:28)
[2020-05-24] MEDS ORDERED: METOCLOPRAMIDE INJ 10MG/2ML VIAL (J2765 PER 1) As Ordered ONE (16:28)
[2020-05-24] MEDS ORDERED: fentaNYL 100 MCG/2 ML INJECTION (J3010) As Ordered ONE (16:28)
[2020-05-24] MEDS ORDERED: BUPIVACAINE/EPIN 0.25% 30 ML VIAL As Ordered ONE (16:33)
[2020-05-24] MEDS ORDERED: BUPIVACAINE HCL 0.25% 30ML VIAL As Ordered ONE (16:33)
[2020-05-24] MEDS ORDERED: ACETAMINOPHEN 1000MG 100ML IV BTL (OFIRMEV) (J0131 PER 10MG) As Ordered ONE (18:35)
[2020-05-24] MEDS ORDERED: ALBUTEROL 90 MCG/ACT 8GM HFA INHALER INH PRN (18:40)
--- NOTE | 2020-05-24 18:53 | ECGEPIP ---
[facility] - ED Test Date: 2020-05-24 Pat Name: DAMIEN CHAVEZ Department: Room: [place] [address] Gender: Female [employer] Machine Machinist: GURWINDER : 1970 Requested By: Geetha Avila Order Number: [id number] Reading MD: Peri Norman Measurements Intervals [place] Rate: 85 P: 35 SD: 172 QRS: -12 QRSD: 88 T: 24 QT: 404 QTc: 480 Interpretive Statements Normal sinus rhythm Anterolateral infarct , age undetermined No prior Electronically Signed on 05-24-2020 18:53:04 EST by Peri Norman
[2020-05-24 19:33] VITALS: BP 105/68
[2020-05-24 20:03] VITALS: BP 105/68
[2020-05-24] MEDS: NS 1,000 ML IV SCH (20:09)
[2020-05-24 20:33] VITALS: BP 106/68
[2020-05-24] MEDS ORDERED: HumaLOG INSULIN (NovoLOG) PER UNIT SC SCH (21:00)
[2020-05-24 21:33] VITALS: BP 106/67
[2020-05-24] MEDS: PIPERACILLIN/TAZOBACTAM SOD 3.375 GM in D5W MINI-BAG PLUS 50 ML IV SCH (21:57)
[2020-05-24] MEDS: traMADol 50 MG TAB PO PRN (21:58)
[2020-05-24 22:33] VITALS: BP 106/65
[2020-05-24 23:33] VITALS: BP 106/63
[2020-05-25 00:33] VITALS: BP 109/62
[2020-05-25 04:33] VITALS: BP 116/66
[2020-05-25] MEDS: traMADol 50 MG TAB PO PRN (04:51)
[2020-05-25] MEDS: NS 1,000 ML IV SCH ×2 (04:52→07:48)
[2020-05-25] MEDS: PIPERACILLIN/TAZOBACTAM SOD 3.375 GM in D5W MINI-BAG PLUS 50 ML IV SCH ×2 (04:52→09:51)
[2020-05-25 06:00] VITALS: BP 115/66
[2020-05-25] MEDS ORDERED: LEVOTHYROXINE 25MCG TABLET (0.025MG) PO SCH (06:00)
[2020-05-25] MEDS: HumaLOG INSULIN (NovoLOG) PER UNIT SC SCH ×2 (07:30→11:53)
[2020-05-25] MEDS ORDERED: LOSARTAN 25 MG TAB PO SCH (09:00)
[2020-05-25] MEDS ORDERED: MELOXICAM (MOBIC) 7.5 MG TAB PO SCH (09:00)
[2020-05-25] MEDS ORDERED: OMEPRAZOLE 20 MG CAP PO SCH (09:00)
[2020-05-25] MEDS ORDERED: AMOX500T2 PO (09:50)
[2020-05-25] MEDS ORDERED: ULTR50TA8 PO (09:50)
[2020-05-25 09:51] VITALS: BP 114/67
[2020-05-25 10:00] VITALS: BP 114/67
[2020-05-25 11:15] VITALS: BP 104/78
--- NOTE | 2020-05-26 15:59 | RO ---
OPERATIVE NOTE DATE OF OPERATION: 05/24/2020 PREOPERATIVE DIAGNOSIS: Probable contained cecal perforation. POSTOPERATIVE DIAGNOSIS: Transmural cecal burn status post colonoscopy. PROCEDURE PERFORMED: Laparoscopic resection of cecum and appendix. SURGEON: Garo Bean MD ANESTHESIA: General. INDICATION FOR THE PROCEDURE: The patient is a 49-year-old woman who had undergone a colonoscopy on the May 23. She was found to have a small nodule adjacent to the orifice of the appendix and this was resected with a hot snare. She called on the noting that she had developed some abdominal pain later on the evening of the and the pain had become much more severe on the . She was directed to come to the emergency department and had significant tenderness in the right lower quadrant. Her white blood cell count was not elevated. A CT scan did not show free air or evidence for an obvious perforation, but there were some inflammatory changes in the area of the appendix, certainly in the area where her biopsy has been performed. I felt it was best to proceed with laparoscopy and possible resection to prevent the potential of a free perforation. The patient was counseled and desires to proceed. OPERATIVE PROCEDURE: The patient was brought to the operating room and placed on the table in a supine position. She was placed under general endotracheal anesthesia. The patient's abdomen was prepped and draped in a sterile fashion. 25% Marcaine was infiltrated at each of her trocar sites. The initial incision was approximately 5 cm above the umbilicus along the midline. The incision was deepened to the fascia and a Veress needle was inserted. After a positive hanging drop test, the abdomen was insufflated with carbon dioxide. After the abdomen was inflated, the fascia was incised along the midline and a 12 mm port was placed without difficulty. The laparoscope was inserted and there was no Veress needle or trocar injury. The liver was noted and appeared slightly pale, but otherwise normal. Visualized portions of the small and large bowel appeared normal. Two 5 mm ports were placed in the left lower quadrant close to the midline. Graspers were inserted. The patient was tilted to a Trendelenburg position and rolled to the left. The ascending colon was identified and elevated. The cecum was identified. There was some greenish exudate noted on the cecum adjacent to the base of the appendix. There appeared to be a dark area right adjacent to the base of the appendix, which would be consistent with the site of her nodule excision on the . The appendix itself appeared normal and thin. I elected to proceed with resection of the cecum and appendix. The terminal ileum was elevated and some lateral peritoneal attachments were divided with the harmonic scalpel. The appendix was freed from any retroperitoneal attachments. There was abundant fibrofatty tissue around the cecum and this was dissected to expose the wall of the cecum and elevate this from the retroperitoneum. During the course of dissection, the appendix was transected with the periappendiceal fat. There was no spillage associated with this. Once the cecum had been elevated, it was clear that there would be an open area to place a staple load across the cecum without interfering with the ileocecal valve. An [place] Number Two stapler with a green load was then selected. This was inserted and placed across the cecum, effectively resecting the cecum with the appendix. The stapler was fired and the tissues were placed in a specimen retrieval pouch. The area was inspected. A single small bleeder along the staple line in the pericecal fat was cauterized. The area was irrigated and there was no evidence of any further bleeding. The patient was returned to a flat position. The abdomen was deflated and the trocars were all removed. The cecum and appendix were recovered through the supraumbilical site after opening the fascial incision slightly. The tissues were set aside, transiently, while the fascia was closed with interrupted simple sutures of 1-0 Vicryl. I opened the specimen on the back table and confirmed that the area of the nodule resection was clearly contained in the specimen adjacent to the appendiceal orifice. The tissues were all sent to permanent pathology. The skin incisions were closed with buried sutures of 4-0 Vicryl and Steri-Strips. The patient tolerated the procedure well without apparent complication. She was awakened in the operating room, extubated and moved to the recovery room in stable condition. ROSLYN
== END 2020-05-25 12:32 | disposition home or self-care (01) | DRG 221 ==
LOC: M ED 14:50 → M ED INP 15:48 → M RR INP 18:42 → M MSPAV 19:36
PROVIDERS: ADMIT Surgery; ATTEND Surgery
PROC: 0DTJ4ZZ Resection of Appendix, Percutaneous Endoscopic Approach (ICD-10-PCS; 2020-05-24)
PROC: 0DTH4ZZ Resection of Cecum, Percutaneous Endoscopic Approach (ICD-10-PCS; principal; 2020-05-24 15:31)
DX: K91.89 Other postprocedural complications and disorders of digestive system (principal); I10 Essential (primary) hypertension; Y83.8 Other surgical procedures as the cause of abnormal reaction of the patient, or of later complication, without mention of misadventure at the time of the procedure; E11.9 Type 2 diabetes mellitus without complications; E07.9 Disorder of thyroid, unspecified; Z79.899 Other long term (current) drug therapy

== ENCOUNTER → 2020-06-18 | Outpatient (REF) | payer OTHER ==
[~2020-06-18] MED LIST changes: +AMOX500T2 PO
[2020-06-18 13:28] LABS: HEMOGLOBIN A1c 9.1 %
[2020-06-18 13:47] LABS: ALBUMIN 3.6 GM/DL (3.2-5.2); ALT/SGPT 74 U/L (12-78); BILIRUBIN,TOTAL 0.4 MG/DL (0.2-1.0); BLOOD UREA NITROGEN 16 MG/DL (7-18); CALCIUM LEVEL 9.5 MG/DL (8.5-10.1); CARBON DIOXIDE LEVEL 30 MEQ/L (21-32); CHLORIDE LEVEL 100 MEQ/L (98-107); CREATININE FOR GFR 0.62 MG/DL (0.55-1.30); GLOMERULAR FILTRATION RATE > 60.0 (>58); GLUCOSE, FASTING 87 MG/DL (70-100); POTASSIUM SERUM 3.3 MEQ/L (3.5-5.1); SODIUM LEVEL 139 MEQ/L (136-145); TOTAL PROTEIN 7.8 GM/DL (6.4-8.2)
== END ==
LOC: M SFHCADAM 09:31
PROVIDERS: ATTEND Physician Assistant
DX: E11.9 Type 2 diabetes mellitus without complications (principal); I10 Essential (primary) hypertension

== ENCOUNTER → 2020-09-23 | Outpatient (REF) | payer OTHER ==
[~2020-09-23] MED LIST changes: +LOSA25TA13 PO; -LOSA25TA14 PO; -OMEP-221 PO; +OMEP40CA5 PO
[2020-09-23 13:12] LABS: ALBUMIN 3.5 GM/DL (3.2-5.2); ALT/SGPT 38 U/L (12-78); BILIRUBIN,TOTAL 0.5 MG/DL (0.2-1.0); BLOOD UREA NITROGEN 18 MG/DL (7-18); CALCIUM LEVEL 9.9 MG/DL (8.5-10.1); CARBON DIOXIDE LEVEL 31 MEQ/L (21-32); CHLORIDE LEVEL 100 MEQ/L (98-107); CREATININE FOR GFR 0.74 MG/DL (0.55-1.30); GLOMERULAR FILTRATION RATE > 60.0 (>58); GLUCOSE, FASTING 136 MG/DL (70-100); POTASSIUM SERUM 4.1 MEQ/L (3.5-5.1); SODIUM LEVEL 138 MEQ/L (136-145); TOTAL PROTEIN 8.1 GM/DL (6.4-8.2)
== END ==
LOC: M SFHCADAM 08:30
PROVIDERS: ATTEND Physician Assistant
DX: E11.9 Type 2 diabetes mellitus without complications (principal)

== ENCOUNTER → 2021-01-10 | Outpatient (REF) | payer OTHER ==
[~2021-01-10] MED LIST changes: -LOSA25TA13 PO; +LOSA25TA14 PO; +OMEP-221 PO; -OMEP40CA5 PO
[2021-01-10 13:52] LABS: HEMOGLOBIN A1c 5.8 %
[2021-01-10 14:01] LABS: BLOOD UREA NITROGEN 16 MG/DL (7-18); CALCIUM LEVEL 9.8 MG/DL (8.5-10.1); CARBON DIOXIDE LEVEL 32 MEQ/L (21-32); CHLORIDE LEVEL 101 MEQ/L (98-107); CREATININE FOR GFR 0.68 MG/DL (0.55-1.30); GLOMERULAR FILTRATION RATE > 60.0 (>51); GLUCOSE, FASTING 80 MG/DL (70-100); POTASSIUM SERUM 3.5 MEQ/L (3.5-5.1); SODIUM LEVEL 139 MEQ/L (136-145)
== END ==
LOC: M SFHCADAM 11:07
PROVIDERS: ATTEND Physician Assistant
DX: E11.9 Type 2 diabetes mellitus without complications (principal)

== ENCOUNTER → 2021-04-11 | Outpatient (REF) | payer OTHER ==
[~2021-04-11] MED LIST changes: +LOSA25TA13 PO; -LOSA25TA14 PO; -OMEP-221 PO; +OMEP40CA5 PO
[2021-04-11 17:23] LABS: HEMOGLOBIN A1c 5.9 %
[2021-04-11 17:42] LABS: ALBUMIN 3.8 GM/DL (3.2-5.2); ALT/SGPT 30 U/L (12-78); BILIRUBIN,TOTAL 0.4 MG/DL (0.2-1.0); BLOOD UREA NITROGEN 20 MG/DL (7-18); CALCIUM LEVEL 9.5 MG/DL (8.5-10.1); CARBON DIOXIDE LEVEL 32 MEQ/L (21-32); CHLORIDE LEVEL 100 MEQ/L (98-107); CREATININE FOR GFR 0.71 MG/DL (0.55-1.30); FREE T4 1.22 NG/DL (0.76-1.46); GLOMERULAR FILTRATION RATE > 60.0 (>51); GLUCOSE, FASTING 80 MG/DL (70-100); POTASSIUM SERUM 3.2 MEQ/L (3.5-5.1); SODIUM LEVEL 140 MEQ/L (136-145); TOTAL PROTEIN 8.1 GM/DL (6.4-8.2)
[2021-04-11 17:45] LABS: CREATININE, URINE 99.5 MG/DL; MALB URINE SIEMENS 40.9 MG/L; MAU/CREAT RATIO 41.1 MCG/MG (0.0-30.0)
== END ==
LOC: M SFHCADAM 14:32
PROVIDERS: ATTEND Physician Assistant
DX: E03.9 Hypothyroidism, unspecified (principal); E11.9 Type 2 diabetes mellitus without complications

== ENCOUNTER → 2021-04-21 | Outpatient (CLI) | payer OTHER | LOC: M ADAMS 14:55 | PROVIDERS: ATTEND Physician Assistant | DX: M79.672 Pain in left foot (principal) ==

== ENCOUNTER → 2021-08-14 | Outpatient (REF) | payer OTHER | LOC: M SFHCWAGY 18:00 | PROVIDERS: ATTEND Specialist | DX: Z12.4 Encounter for screening for malignant neoplasm of cervix (principal) | CPT/HCPCS: 87624; G0123 ==

== ENCOUNTER → 2021-08-14 | Outpatient (CLI) | payer OTHER | LOC: M WHC 14:39 | PROVIDERS: ATTEND Specialist | DX: Z12.31 Encounter for screening mammogram for malignant neoplasm of breast (principal) ==

== ENCOUNTER → 2021-08-15 | Outpatient (REF) | payer OTHER ==
[2021-08-15 17:55] LABS: BLOOD UREA NITROGEN 17 MG/DL (7-18); CALCIUM LEVEL 9.1 MG/DL (8.5-10.1); CARBON DIOXIDE LEVEL 32 MEQ/L (21-32); CHLORIDE LEVEL 101 MEQ/L (98-107); CREATININE FOR GFR 0.77 MG/DL (0.55-1.30); GLOMERULAR FILTRATION RATE > 60.0 (>51); GLUCOSE, FASTING 136 MG/DL (70-100); POTASSIUM SERUM 3.5 MEQ/L (3.5-5.1); SODIUM LEVEL 140 MEQ/L (136-145)
[2021-08-15 19:43] LABS: HEMOGLOBIN A1c 6.1 %
== END ==
LOC: M SFHCADAM 15:04
PROVIDERS: ATTEND Physician Assistant
DX: E11.9 Type 2 diabetes mellitus without complications (principal); M79.672 Pain in left foot; E87.6 Hypokalemia

== ENCOUNTER → 2021-11-21 | Outpatient (REF) | payer OTHER ==
[2021-11-21 13:01] LABS: ALT/SGPT 34 U/L (12-78); BILIRUBIN,TOTAL 0.7 MG/DL (0.2-1.0); BLOOD UREA NITROGEN 16 MG/DL (7-18); CALCIUM LEVEL 9.9 MG/DL (8.5-10.1); CARBON DIOXIDE LEVEL 31 MEQ/L (21-32); CHLORIDE LEVEL 99 MEQ/L (98-107); CHOLESTEROL LEVEL 129 MG/DL (<200); CHOLESTEROL RISK RATIO 3.225 (<5); CREATININE FOR GFR 0.59 MG/DL (0.55-1.30); GLOMERULAR FILTRATION RATE > 60.0 (>51); GLUCOSE, FASTING 89 MG/DL (70-100); HDL CHOLESTEROL 40 MG/DL (>40); LDL CHOLESTEROL 67 MG/DL (<100); NON-HDL-C 89 MG/DL; POTASSIUM SERUM 3.5 MEQ/L (3.5-5.1); SODIUM LEVEL 136 MEQ/L (136-145); TOTAL PROTEIN 8.1 GM/DL (6.4-8.2); TRIGLYCERIDES LEVEL 112 MG/DL (<150)
[2021-11-21 14:06] LABS: HEMOGLOBIN A1c 6.1 %
== END ==
LOC: M SFHCADAM 10:39
PROVIDERS: ATTEND Physician Assistant
DX: E03.9 Hypothyroidism, unspecified (principal); E11.9 Type 2 diabetes mellitus without complications; I10 Essential (primary) hypertension

== ENCOUNTER → 2022-02-12 | Outpatient (CLI) | payer OTHER | LOC: M RAD 16:11 | PROVIDERS: ATTEND Physician Assistant | DX: G43.111 Migraine with aura, intractable, with status migrainosus (principal); I10 Essential (primary) hypertension; Z86.79 Personal history of other diseases of the circulatory system ==

== ENCOUNTER → 2022-05-19 | Outpatient (REF) | payer OTHER ==
[~2022-05-19] MED LIST changes: -POTA10CA32; +POTA10CA33
[2022-05-19 13:39] LABS: HEMATOCRIT 47.4 % (36.0-47.0); HEMOGLOBIN 15.1 g/dl (12.0-15.5); MEAN CORPUSCULAR HEMOGLOBIN 26.7 pg (27.0-33.0); MEAN CORPUSCULAR HGB CONC 31.9 g/dl (32.0-36.5); MEAN CORPUSCULAR VOLUME 83.9 fl (80.0-96.0); PLATELET COUNT, AUTOMATED 315 10^3/uL (150-450); RED BLOOD COUNT 5.65 10^6/uL (4.00-5.40); WHITE BLOOD COUNT 10.7 10^3/uL (4.0-10.0)
[2022-05-19 13:57] LABS: HEMOGLOBIN A1c 6.3 % (4.0-6.0)
[2022-05-19 14:04] LABS: CREATININE, URINE 74.2 MG/DL; MAU/CREAT RATIO 45.8 MCG/MG (0.0-30.0)
[2022-05-19 15:02] LABS: ALBUMIN 3.9 G/DL (3.2-5.2); ALKALINE PHOSPHATASE 91 U/L (46-116); ALT/SGPT 41 U/L (7.0-40); AST/SGOT 26 U/L (<34); BILIRUBIN,TOTAL 0.6 MG/DL (0.3-1.2); BLOOD UREA NITROGEN 20 MG/DL (9-23); CALCIUM LEVEL 10.1 MG/DL (8.5-10.1); CARBON DIOXIDE LEVEL 30 MMOL/L (20-31); CHLORIDE LEVEL 98 MMOL/L (98-107); CREATININE FOR GFR 0.56 MG/DL (0.55-1.30); FREE T4 1.28 NG/DL (0.89-1.76); GLOMERULAR FILTRATION RATE > 60.0 (>51); GLUCOSE, FASTING 97 MG/DL (60-100); SODIUM LEVEL 140 MMOL/L (136-145); THYROID STIMULATING HORMONE 1.846 uIU/ML (0.55-4.78)
[2022-05-19 15:15] LABS: TOTAL PROTEIN 7.7 G/DL (5.7-8.2)
== END ==
LOC: M SFHCADAM 08:55
PROVIDERS: ATTEND Physician Assistant
DX: I10 Essential (primary) hypertension (principal); E11.9 Type 2 diabetes mellitus without complications; E03.9 Hypothyroidism, unspecified

== ENCOUNTER → 2022-11-26 | Outpatient (REF) | payer OTHER ==
[~2022-11-26] MED LIST changes: -POTA10CA33; +POTA10CA60
[2022-11-26 13:47] LABS: BASO # 0.1 10^3/uL (0.0-0.2); BASO % 0.8 % (0.0-1.0); EOS # 0.2 10^3/uL (0.0-0.5); HEMATOCRIT 46.1 % (36.0-47.0); HEMOGLOBIN 14.5 g/dl (12.0-15.5); LYMPH % 25.5 % (24.0-44.0); MEAN CORPUSCULAR HEMOGLOBIN 26.3 pg (27.0-33.0); MEAN CORPUSCULAR HGB CONC 31.5 g/dl (32.0-36.5); MEAN CORPUSCULAR VOLUME 83.7 fl (80.0-96.0); MONO # 0.6 10^3/uL (0.0-0.8); MONO % 8.2 % (2.0-8.0); NEUTROPHILS # 4.8 10^3/uL (1.5-8.5); NEUTROPHILS % 62.2 % (36.0-66.0); PLATELET COUNT, AUTOMATED 295 10^3/uL (150-450); RED BLOOD COUNT 5.51 10^6/uL (4.00-5.40); WHITE BLOOD COUNT 7.6 10^3/uL (4.0-10.0)
[2022-11-26 14:07] LABS: HEMOGLOBIN A1c 6.7 % (4.0-6.0)
[2022-11-26 14:21] LABS: ALBUMIN 3.8 G/DL (3.2-5.2); ALKALINE PHOSPHATASE 81 U/L (46-116); ALT/SGPT 59 U/L (7.0-40); AST/SGOT 40 U/L (<34); BILIRUBIN,TOTAL 0.8 MG/DL (0.3-1.2); BLOOD UREA NITROGEN 17 MG/DL (9-23); CALCIUM LEVEL 9.9 MG/DL (8.5-10.1); CARBON DIOXIDE LEVEL 31 MMOL/L (20-31); CHLORIDE LEVEL 98 MMOL/L (98-107); CREATININE FOR GFR 0.54 MG/DL (0.55-1.30); GLOMERULAR FILTRATION RATE > 60.0 (>51); GLUCOSE, FASTING 84 MG/DL (60-100); POTASSIUM SERUM 3.2 MMOL/L (3.5-5.1); SODIUM LEVEL 139 MMOL/L (136-145); TOTAL PROTEIN 7.5 G/DL (5.7-8.2)
== END ==
LOC: M SFHCADAM 09:15
PROVIDERS: ATTEND Physician Assistant
DX: G43.111 Migraine with aura, intractable, with status migrainosus (principal); E11.9 Type 2 diabetes mellitus without complications

== ENCOUNTER → 2022-12-16 | Outpatient (CLI) | payer OTHER | LOC: M ADAMS 08:30 | PROVIDERS: ATTEND Physician Assistant | DX: S20.211A Contusion of right front wall of thorax, initial encounter (principal); Y93.9 Activity, unspecified; Y92.9 Unspecified place or not applicable ==

== ENCOUNTER → 2023-02-25 | Outpatient (REF) | payer OTHER ==
[2023-02-25 13:32] LABS: BLOOD UREA NITROGEN 18 MG/DL (9-23); CALCIUM LEVEL 10.2 MG/DL (8.5-10.1); CARBON DIOXIDE LEVEL 32 MMOL/L (20-31); CHLORIDE LEVEL 100 MMOL/L (98-107); CREATININE FOR GFR 0.56 MG/DL (0.55-1.30); GLOMERULAR FILTRATION RATE > 60.0 (>51); GLUCOSE, FASTING 106 MG/DL (60-100); MAGNESIUM LEVEL 1.6 MG/DL (1.8-2.4); POTASSIUM SERUM 3.2 MMOL/L (3.5-5.1); SODIUM LEVEL 142 MMOL/L (136-145)
[2023-02-25 16:06] LABS: HEMOGLOBIN A1c 6.3 % (4.0-6.0)
== END ==
LOC: M SFHCADAM 08:27
PROVIDERS: ATTEND Physician Assistant
DX: E87.6 Hypokalemia (principal); E11.9 Type 2 diabetes mellitus without complications

== ENCOUNTER → 2023-05-31 | Outpatient (REF) | payer OTHER ==
[2023-05-31 13:34] LABS: BLOOD UREA NITROGEN 20 MG/DL (9-23); CALCIUM LEVEL 10.1 MG/DL (8.5-10.1); CARBON DIOXIDE LEVEL 31 MMOL/L (20-31); CHLORIDE LEVEL 101 MMOL/L (98-107); CREATININE FOR GFR 0.57 MG/DL (0.55-1.30); GLOMERULAR FILTRATION RATE > 60.0 (>51); GLUCOSE, FASTING 97 MG/DL (60-100); SODIUM LEVEL 139 MMOL/L (136-145)
[2023-05-31 14:01] LABS: HEMOGLOBIN A1c 6.7 % (4.0-6.0)
== END ==
LOC: M SFHCADAM 09:30
PROVIDERS: ATTEND Physician Assistant
DX: E83.42 Hypomagnesemia (principal); E11.9 Type 2 diabetes mellitus without complications; I10 Essential (primary) hypertension

== ENCOUNTER → 2023-06-17 | Outpatient (CLI) | payer OTHER | LOC: M SOG 14:44 | PROVIDERS: ATTEND Physician Assistant | DX: M25.561 Pain in right knee (principal) ==

== ENCOUNTER → 2023-06-23 | Outpatient (CLI) | payer OTHER | LOC: M ADAMS 13:32 | PROVIDERS: ATTEND Physician Assistant | DX: M79.672 Pain in left foot (principal); M72.2 Plantar fascial fibromatosis; M85.872 Other specified disorders of bone density and structure, left ankle and foot ==

== ENCOUNTER → 2023-09-09 | Outpatient (REF) | payer OTHER ==
[~2023-09-09] MED LIST changes: -POTA10CA60; +POTA10CA70
[2023-09-09 14:18] LABS: HEMOGLOBIN A1c 6.4 % (4.0-6.0)
== END ==
LOC: M SFHCADAM 07:49
PROVIDERS: ATTEND Physician Assistant
DX: E11.9 Type 2 diabetes mellitus without complications (principal)

== ENCOUNTER 2024-01-02 08:55 | Emergency (ER) | payer OTHER ==
[~2024-01-02] VITALS: Ht 157.5 cm; Wt 113.8 kg
[2024-01-02] MEDS ORDERED: TIRZ7.5P (09:26)
[2024-01-02] MEDS ORDERED: ATOR40TA75 (09:26)
[2024-01-02] MEDS ORDERED: MAGN100C3 (09:26)
[2024-01-02] MEDS ORDERED: POTA-136 (09:26)
[2024-01-02] MEDS: KETOROLAC 60MG 2ML VIAL IM ONE (11:56)
[2024-01-02] MEDS: methocarbamoL 750 MG TAB PO ONE (11:56)
[2024-01-02] MEDS ORDERED: METH-1164 PO (13:01)
[2024-01-02 13:16] VITALS: BP 119/76; TEMP 97.6; O2SAT 97
== END 2024-01-02 13:17 | disposition home or self-care (01) ==
LOC: M ED 08:55
DX: M54.31 Sciatica, right side (principal); E11.9 Type 2 diabetes mellitus without complications; I10 Essential (primary) hypertension; Z88.5 Allergy status to narcotic agent; Z88.8 Allergy status to other drugs, medicaments and biological substances; Z79.51 Long term (current) use of inhaled steroids; Z79.899 Other long term (current) drug therapy
CPT/HCPCS: 96372; 99283; J1885

== ENCOUNTER → 2024-01-04 | Outpatient (CLI) | payer OTHER ==
[~2024-01-04] MED LIST changes: +ATOR40TA75; +MAGN100C3; +METH-1164 PO; +POTA-136; +TIRZ7.5P
[2024-01-04 19:41] LABS: HEMOGLOBIN A1c 6.4 % (4.0-6.0)
[2024-01-04 20:06] LABS: BLOOD UREA NITROGEN 16 MG/DL (9-23); CALCIUM LEVEL 10.6 MG/DL (8.5-10.1); CARBON DIOXIDE LEVEL 30 MMOL/L (20-31); CHLORIDE LEVEL 103 MMOL/L (98-107); GLOMERULAR FILTRATION RATE > 60.0 (>51); GLUCOSE, FASTING 93 MG/DL (60-100); POTASSIUM SERUM 4.7 MMOL/L (3.5-5.1); SODIUM LEVEL 140 MMOL/L (136-145)
== END ==
LOC: M WUC 10:43
PROVIDERS: ATTEND Physician Assistant
DX: E11.9 Type 2 diabetes mellitus without complications (principal); I10 Essential (primary) hypertension; R60.0 Localized edema

== ENCOUNTER → 2024-05-02 | Outpatient (REF) | payer OTHER ==
[2024-05-02 13:05] LABS: HEMATOCRIT 47.9 % (36.0-47.0); HEMOGLOBIN 15.3 g/dl (12.0-15.5); MEAN CORPUSCULAR HEMOGLOBIN 26.7 pg (27.0-33.0); MEAN CORPUSCULAR HGB CONC 31.9 g/dl (32.0-36.5); MEAN CORPUSCULAR VOLUME 83.7 fl (80.0-96.0); PLATELET COUNT, AUTOMATED 282 10^3/uL (150-450); RED BLOOD COUNT 5.72 10^6/uL (4.00-5.40); WHITE BLOOD COUNT 8.7 10^3/uL (4.0-10.0)
[2024-05-02 13:26] LABS: CREATININE, URINE 227.8 MG/DL
[2024-05-02 13:28] LABS: MAU/CREAT RATIO 67.6 MCG/MG (0.0-30.0)
[2024-05-02 13:29] LABS: ALBUMIN 3.7 G/DL (3.2-5.2); ALKALINE PHOSPHATASE 113 U/L (35-104); ALT/SGPT 40 U/L (7.0-40); AST/SGOT 27 U/L (<34); BILIRUBIN,TOTAL 0.7 MG/DL (0.3-1.2); BLOOD UREA NITROGEN 22 MG/DL (9-23); CALCIUM LEVEL 9.8 MG/DL (8.5-10.1); CARBON DIOXIDE LEVEL 30 MMOL/L (20-31); CHLORIDE LEVEL 101 MMOL/L (98-107); CHOLESTEROL LEVEL 142 MG/DL (<200); CREATININE FOR GFR 0.61 MG/DL (0.55-1.30); GLOMERULAR FILTRATION RATE > 60.0 (>51); GLUCOSE, FASTING 105 MG/DL (60-100); LDL CHOLESTEROL 73.2 MG/DL (<100); POTASSIUM SERUM 3.9 MMOL/L (3.5-5.1); SODIUM LEVEL 141 MMOL/L (136-145); TOTAL PROTEIN 7.8 G/DL (5.7-8.2); TRIGLYCERIDES LEVEL 129 MG/DL (<150)
[2024-05-02 13:31] LABS: FREE T4 1.21 NG/DL (0.89-1.76); THYROID STIMULATING HORMONE 2.271 uIU/ML (0.55-4.78)
== END ==
LOC: M SFHCADAM 09:29
PROVIDERS: ATTEND Physician Assistant
DX: E11.9 Type 2 diabetes mellitus without complications (principal); I10 Essential (primary) hypertension; E78.2 Mixed hyperlipidemia; J45.909 Unspecified asthma, uncomplicated

== ENCOUNTER → 2024-07-19 | Outpatient (CLI) | payer OTHER | LOC: M SOG 08:11 | PROVIDERS: ATTEND Physician Assistant | DX: M17.11 Unilateral primary osteoarthritis, right knee (principal); M85.861 Other specified disorders of bone density and structure, right lower leg ==

== ENCOUNTER → 2024-10-20 | Outpatient (REF) | payer OTHER ==
[2024-10-20 14:49] LABS: CALCIUM LEVEL 9.5 MG/DL (8.5-10.1); CARBON DIOXIDE LEVEL 31 MMOL/L (20-31); CHLORIDE LEVEL 101 MMOL/L (98-107); CREATININE FOR GFR 0.63 MG/DL (0.55-1.30); GLOMERULAR FILTRATION RATE > 90.0 (>51); POTASSIUM SERUM 3.5 MMOL/L (3.5-5.1); SODIUM LEVEL 141 MMOL/L (136-145)
[2024-10-20 15:44] LABS: ESTIMATED AVERAGE GLUCOSE 134.0 MG/DL (60-110)
== END ==
LOC: M SFHCADAM 07:52
PROVIDERS: ATTEND Physician Assistant
DX: I10 Essential (primary) hypertension (principal); E11.9 Type 2 diabetes mellitus without complications

== ENCOUNTER → 2024-11-08 | Outpatient (REF) | payer OTHER ==
[2024-11-10 14:57] LABS: HPV APTIMA Not Detected (Not Detected)
== END ==
LOC: M SFHCWAGY 13:30
PROVIDERS: ATTEND Specialist
DX: Z12.4 Encounter for screening for malignant neoplasm of cervix (principal); Z77.9 Other contact with and (suspected) exposures hazardous to health
CPT/HCPCS: 87624; G0123

== ENCOUNTER → 2024-11-08 | Outpatient (CLI) | payer OTHER | LOC: M WHC 10:47 | PROVIDERS: ATTEND Specialist | DX: Z12.31 Encounter for screening mammogram for malignant neoplasm of breast (principal); R92.8 Other abnormal and inconclusive findings on diagnostic imaging of breast ==

== ENCOUNTER → 2024-11-16 | Outpatient (CLI) | payer OTHER | LOC: M WHC 08:04 | PROVIDERS: ATTEND Specialist | DX: Z12.31 Encounter for screening mammogram for malignant neoplasm of breast (principal) ==